=== PATIENT | female | born 1980 | race Caucasian/White ===

== ENCOUNTER 2017-08-17 07:52 | Emergency (ER) | payer BC ==
[~2017-08-17] VITALS: Ht 170.2 cm; Wt 103.4 kg
[2017-08-17 08:00] VITALS: BP 115/82
[2017-08-17] MEDS ORDERED: LEXAPRO20 MG PO (08:02)
[2017-08-17] MEDS ORDERED: WELLBUTRIN 75 M75 M1 PO (08:02)
[2017-08-17] MEDS ORDERED: TOPAMAX 25 MG T25 M1 PO (08:02)
[2017-08-17] MEDS ORDERED: ESTRADIOL 1 MG T1 M1 PO (08:02)
[2017-08-17] MEDS ORDERED: LAMICTAL100 MG PO (08:02)
[2017-08-17] MEDS ORDERED: PHENERGAN 25 MG25 M1 PO (08:03)
[2017-08-17] MEDS ORDERED: TRIAMCINOLONE A80 G2 TOP (08:24)
[2017-08-17] MEDS ORDERED: KEFLEX500 M1 PO (08:24)
== END 2017-08-17 08:40 | disposition home or self-care (01) ==
LOC: M.ERS 07:52
DX: L30.9 Dermatitis, unspecified (principal); F32.9 Major depressive disorder, single episode, unspecified; Z86.73 Personal history of transient ischemic attack (TIA), and cerebral infarction without residual deficits